=== PATIENT | male | born 1935 | race Two or more races ===

== ENCOUNTER 2024-03-17 08:16 | Emergency (ER) | payer MEDICARE, MEDICAID, SELFPAY ==
[2024-03-17 08:26] VITALS: BP 126/74; PULSE 74; RESP 18; TEMP 36.8; O2SAT 95; BMI 24.0
--- NOTE | 2024-03-17 08:39 | EKG_ITS ---
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) Order Number: [id number] Reading MD: Bora Martinez ([facility]) Measurements Intervals [place] Rate: 63 P: AK: QRS: -61 QRSD: 160 T: 47 QT: 422 QTc: 434 Interpretive Statements ATRIAL FIBRILLATION MARKED LEFT AXIS DEVIATION [QRS AXIS < -30] RIGHT BUNDLE BRANCH BLOCK [120+ ms QRS DURATION, UPRIGHT V1, 40+ ms S IN I/aVL/V4/V5/V6] No previous ECG available for comparison /store/S0/[id number].pdf
--- NOTE | 2024-03-17 08:39 | XR_ITS ---
Examination: PA lateral chest 2 views Technique: Upright PA lateral chest 2 views Exam date and time: March 17, 2024 0925 hrs. Indications: Onset chest pain today Findings: Mild prominence left ventricle No pneumonia or pulmonary edema Mild thoracic degenerative disc disease Impression: No pneumonia or pulmonary edema
--- NOTE | 2024-03-17 08:42 | XR_ITS ---
Examination: CT right humerus, without contrast. 2-D sagittal reconstructions. 2-D coronal reconstructions. 3-D reconstructions. Date and time of exam:March 17, 2024 0914 hrs. Indications: Right arm pain and stiffness and swelling, spider bite 2 days ago CTDI: vol (mGy):20.5 DLP: (mGycm):962 Technique: Multiple 1.25 mm axial sections of the right upper extremity right humerus without intravenous contrast have been obtained. 2-D sagittal and coronal reconstructions have been obtained. 3-D reconstructions have been obtained. Low dose protocols were performed. One or more of the following dose reduction techniques were used; automated exposure control, adjustment of the mA and/or KV according to patient size, use of iterative reconstruction technique. Findings: Moderate osteoarthritis glenohumeral joint No humeral head dislocation or fracture Edema in the soft tissue anterior upper arm which also involves the biceps muscle The biceps muscle shows low density but assessment is very difficult without intravenous contrast No scar cortical bone destruction involving the humerus No elbow effusion is noted No foreign body Edema is more prominent posterior to the elbow and posterior forearm Impression: Negative for osteomyelitis Very prominent edema dorsal to the elbow and dorsal forearm with possible poorly defined fluid abscess collection Recommend MRI right upper extremity without contrast follow-up
--- NOTE | 2024-03-17 08:44 | PD.EDRME ---
Rapid Medical Screening Exam [facility] Arrival date/time: 03/17/24 08:16 88-year-old male with past medical history of heart condition on Eliquis presents to the emergency department complaining of right shoulder pain and right arm swelling and bruising that is been going on for several days. Patient denies any recent trauma fall or injury. Chief Complaint: Skin/Abscess/Foreign Body Time Seen by Provider: 03/17/24 08:35 Vital signs: Vital Signs Temperature 98.2 F 03/17/24 08:26 Pulse Rate 74 03/17/24 08:26 Respiratory Rate 18 03/17/24 08:26 Blood Pressure 126/74 03/17/24 08:26 Pulse Oximetry (%) 95 03/17/24 08:26 Oxygen Delivery Method Room Air 03/17/24 08:26
[2024-03-17 09:21] LABS: Basophils % (Auto) 1 % (0-2.5); Eosinophils # (Auto) 0.2 Thou/mm3 (0.0-0.5); Eosinophils % (Auto) 3 % (0-10); Hematocrit 39.4 % (41.0-53.0); Hemoglobin 13.2 g/dL (13.5-16.0); Immature Granulocytes % (Auto) 0 % (0-0); Immature Granulocytes Auto 0.01 Thou/mm3 (0.00-0.00); Lymphocytes # (Auto) 1.1 Thou/mm3 (1.0-4.8); Lymphocytes % (Auto) 19 % (10-50); Mean Corpuscular HGB Conc 33.5 g/dl (31.0-37.0); Mean Corpuscular Hemoglobin 30.2 pg (25.0-35.0); Mean Corpuscular Volume 90 fL (80-100); Monocytes # (Auto) 0.6 Thou/mm3 (0.0-0.8); Monocytes % (Auto) 10 % (0-12); Neutrophils % (Auto) 68 % (37-80); Nucleated Red Blood Cell % 0 /100 WBC (0); Platelet Count 119 Thou/mm3 (140-440); RDW Standard Deviation 47.1 fL (35.1-43.9); Red Blood Count 4.37 Miln/mm3 (4.50-5.90); White Blood Count 5.9 Thou/mm3 (3.8-10.6)
[2024-03-17 09:32] LABS: B-Type Natriuretic Peptide 108 pg/mL (0-100)
[2024-03-17 09:33] LABS: INR 1.2 (0.9-1.3); Partial Thromboplastin Time 28.1 Seconds (22.0-36.0); Prothrombin Time 12.7 Seconds (9.0-12.2)
[2024-03-17 09:37] LABS: Albumin, Serum 4.3 gm/dL (3.4-4.8); Albumin/Globulin Ratio 1.3 (1.2-2.2); Alkaline Phosphatase 77 U/L (46-116); Anion Gap 5 (7-16); Aspartate Amino Transferase 19 U/L (0-34); BUN/Creatinine Ratio 15 Ratio (12-20); Bilirubin,Total 2.6 mg/dL (0.3-1.2); Blood Urea Nitrogen 18 mg/dL (9-23); Calcium 9.4 mg/dL (8.3-10.6); Calcium (Corrected) 9.4 mg/dL (8.5-10.1); Carbon Dioxide 27.2 mMol/L (20.0-31.0); Chloride 106 mMol/L (98-107); Creatinine (Component) 1.2 mg/dL (0.6-1.3); Estimated Creatinine Clearance 35.6 mL/min (>60); Globulin 3.3 gm/dL (2.3-3.5); Glucose 90 mg/dL (74-106); Magnesium 2.2 mg/dL (1.6-2.6); Osmolality,Calculated 277 (275-295); Sodium 138 mMol/L (136-145); Total Protein 7.6 gm/dL (5.7-8.2); Troponin I < 0.020 ng/mL (0.0-0.045); eGFR 59 See Note
[2024-03-17 09:45] LABS: Alanine Aminotransferase 9 U/L (10-49)
[2024-03-17 10:00] LABS: Collection Type, Urine Clean Catch
[2024-03-17 10:13] VITALS: BP 102/65; PULSE 61; RESP 19; TEMP 36.7; O2SAT 99
[2024-03-17 10:55] LABS: Bilirubin,Urine Negative (Negative); Blood,Urine Negative (Negative); Clarity,Urine Clear (Clear/Hazy); Color,Urine Yellow (Lt Yel-Yel); Culture Indicated,Urine Not Indicated; Glucose, Urine Negative (Negative); Ketones,Urine Negative (Negative); Leukocyte Esterase,Urine Negative (Negative); Nitrite,Urine Negative (Negative); Protein,Urine Negative (Neg - Trace); RBC,Urine 2 /hpf (0-3); Specific Gravity,Urine 1.019 (1.001-1.035); Squamous Epithelial Cell,Urine < 1 /hpf (0-5); Urobilinogen,Urine Negative mg/dL (0.0-1.0); WBC,Urine 1 /hpf (0-5)
--- NOTE | 2024-03-17 11:30 | EDNOTE_ITS ---
ED General RME/HPI General Chief complaint: Skin/Abscess/Foreign Body Stated complaint: POSSIBLE SPIDER BITE/RIGHT ARM BLACK/NUMB Time Seen by Provider: 03/17/24 08:35 Arrival date/time: 03/17/24 08:16 RME / HPI RME / HPI narrative: 88-year-old male patient with past medical history of hypertension, chronic A- fib came in for evaluation regarding right arm bruising. Onset of symptoms. Last 3 days. Patient denies any pain. Patient denies any fever denies any trauma denies any other complaints. Patient is taking Eliquis. Related Data Home Medications ?Medication ?Instructions ?Recorded ?Confirmed tamsulosin 0.4 mg capsule (Flomax) 0.4 mg PO QDAY ##0 02/10/16 10/10/17 Benazepril Hcl * (LOTENSIN *) 10 mg PO QDAY #0 tabs 03/08/16 10/10/17 Ibuprofen * (MOTRIN *) 400 mg PO Q6HR #0 tabs 06/07/16 10/10/17 Allergies Allergy/AdvReac Type Severity Reaction Status Date / Time No Known Drug Allergies Allergy Verified 03/17/24 08:20 Review of Systems Review of Systems Narrative Review of Systems: Review of system reviewed and within normal limits except mentioned in HPI ED Exam Narrative Physical exam: VITAL SIGNS: Reviewed. GENERAL APPEARANCE: Alert and interactive, follows commands, no acute distress, HEAD AND FACE: Non-traumatic. ENT: PERRL, pink conjunctivitis, eyelid no trauma, Mucous membrane moist. NECK: Supple, nontender, no nuchal rigidity. CHEST: No tenderness, no crepitus, no paradoxical movement, no retractions. LUNGS: Clear, well ventilated, symmetric, no rales, no wheezing, no ronchi, no stridor, good breath sounds bilaterally. HEART: Regular rate, regular rhythm, no murmur, no gallops. ABDOMEN: Soft, positive bowel sounds, nondistended, no guarding, nontender, no rebound, no masses, RECTAL: Deferred. GENITAL: Deferred. NEUROLOGICAL: Gross motor function intact sensory function intact, Appropriate for age. MUSCULOSKELETAL: low back nontender, full range of motion. EXTREMITIES: Right upper extremity bruising, no swelling no tenderness no skin breakdown radial and ulnar pulses +2 bilaterally, nontender, full range of motion. SKIN: Color pink, dry, no rash, no lacerations, no abrasions, no contusions. LYMPHATICS: Deferred. Course Quality Measures none Orders Category Date Time Status EKG (ED ONLY) *Do not use* NOW Care 03/17/24 08:[address] humerus RT wo con Stat Exams 03/17/24 08:42 Completed EKG (ED Only) Stat Exams 03/17/24 08:39 Ordered XR chest 2V Stat Exams 03/17/24 08:39 Completed B-Type Natriuretic Peptide Stat Lab 03/17/24 09:07 Completed CBC Stat Lab 03/17/24 09:07 Completed Comprehensive Metabolic Panel Stat Lab 03/17/24 09:07 Completed Magnesium Stat Lab 03/17/24 09:07 Completed Partial Thromboplastin Time Stat Lab 03/17/24 09:07 Completed Prothrombin Time with INR Stat Lab 03/17/24 09:07 Completed Troponin I Stat Lab 03/17/24 09:07 Completed Urinalysis, C/S if Indicated Stat Lab 03/17/24 09:50 Completed Vital Signs Vital signs: Vital Signs Temperature 98.2 F 03/17/24 08:26 Pulse Rate 74 03/17/24 08:26 Respiratory Rate 18 03/17/24 08:26 Blood Pressure 126/74 03/17/24 08:26 Pulse Oximetry (%) 95 03/17/24 08:26 Oxygen Delivery Method Room Air 03/17/24 08:26 [facility] [place] Patient data External records reviewed:: None Clinical information provided by:: patient Social determinants that could affect healthcare access:: none Patient has the following chronic illnesses:: Chronic A-fib hypertension How is presenting disease/condition affected by chronic disease/condition?: e xacerbated by Evaluation data The following diagnostics were reviewed and interpreted by me:: lab results and radiology exam(s) Lab and/or radiology exams considered but not ordered:: None Interpretation Summary: EKG as interpreted by me showed chronic A-fib, ventricular rate of 63 bpm, no ST segment elevation depression noted. Laboratory workup all came back normal. Except for slightly elevated total bili of 2.6. X-ray of the arm is negative for any sign of osteomyelitis as interpreted by me. Results discussed with the patient. And family. Medications Medications considered but not ordered:: None Medication administrations:: None Consultations Consultation(s) initiated? (list below): No Diagnosis Differential Diagnosis ED Complaint MDM: Bruising, cellulitis, chronic A-fib on Eliquis Most likely diagnosis given after review of the tests above:: Right upper extremity bruising Admission Indicated Admission indicated?: not indicated Explain why admission is indicated or not indicated:: None Admission Request Was there a request for admission?: No Disposition Plan Disposition Plan: Discharge Discharge Attestation Discharge Attestation: The patient and all family members were given an opportunity to ask questions and understood the discharge instructions. Discharge instructions specifically effects, indications for sooner follow up or return to the emergency department, and the expected course of current diagnosis. Patient condition: Stable Medical Decision Making MDM Narrative MDM Narrative: 88-year-old male patient with past medical history of hypertension, chronic A- fib came in for evaluation regarding right arm bruising. Onset of symptoms. Last 3 days. Patient denies any pain. Patient denies any fever denies any trauma denies any other complaints. Patient is taking Eliquis. Laboratory workup all came back normal patient's bruising could be secondary to Eliquis. There is no sign of infection. Patient stable for discharge Differential Diagnosis Differential Diagnosis: Bruising, cellulitis, chronic A-fib on Eliquis Lab Data 03/17/24 09:07 03/17/24 09:07 Labs: Lab Results 03/17/24 03/17/24 Range/Units 09:07 09:50 WBC 5.9 (3.8-10.6) Thou/mm3 RBC 4.37 L (4.50-5.90) Miln/mm3 Hgb 13.2 L (13.5-16.0) g/dL Hct 39.4 L (41.0-53.0) % MCV 90 (80-100) fL MCH 30.2 (25.0-35.0) pg MCHC 33.5 (31.0-37.0) g/dl RDW Std Deviation 47.1 H (35.1-43.9) fL Plt Count 119 L (140-440) Thou/mm3 Neut % (Auto) 68 (37-80) % Lymph % (Auto) 19 (10-50) % [place] % (Auto) 10 (0-12) % Eos % (Auto) 3 (0-10) % Baso % (Auto) 1 (0-2.5) % Neut # (Auto) 4.0 (1.8-7.7) Thou/mm3 Lymph # (Auto) 1.1 (1.0-4.8) Thou/mm3 [place] # (Auto) 0.6 (0.0-0.8) Thou/mm3 Eos # (Auto) 0.2 (0.0-0.5) Thou/mm3 Baso # (Auto) 0.0 (0.0-0.2) Thou/mm3 Immature Gran # (Auto) 0.01 H (0.00-0.00) Thou/mm3 Absolute Nucleated RBC 0.00 (0.00-0.00) Thou/mm3 Immature Gran % 0 (0-0) % Nucleated RBC % 0 (0) /100 WBC PT 12.7 H (9.0-12.2) Seconds INR 1.2 (0.9-1.3) APTT 28.1 (22.0-36.0) Seconds Sodium 138 (136-145) mMol/L Potassium 4.0 (3.4-5.1) mMol/L Chloride 106 (98-107) mMol/L Carbon Dioxide 27.2 (20.0-31.0) mMol/L Anion Gap 5 L (7-16) BUN 18 (9-23) mg/dL Creatinine 1.2 (0.6-1.3) mg/dL Estim Creat Clear Calc 35.6 L (>60) mL/min eGFR 59 L (60 - ) See Note BUN/Creatinine Ratio 15 (12-20) Ratio Glucose 90 (74-106) mg/dL Calculated Osmolality 277 (275-295) Calcium 9.4 (8.3-10.6) mg/dL Corrected Calcium 9.4 (8.5-10.1) mg/dL Magnesium 2.2 (1.6-2.6) mg/dL Total Bilirubin 2.6 H (0.3-1.2) mg/dL AST 19 (0-34) U/L ALT 9 L (10-49) U/L Alkaline Phosphatase 77 (46-116) U/L Troponin I < 0.020 (0.0-0.045) ng/mL B-Natriuretic Peptide 108 H (0-100) pg/mL Total Protein 7.6 (5.7-8.2) gm/dL Albumin 4.3 (3.4-4.8) gm/dL Globulin 3.3 (2.3-3.5) gm/dL Albumin/Globulin Ratio 1.3 (1.2-2.2) Ur Collection Type Clean Catch Urine Color Yellow (Lt Yel-Yel) Urine Clarity Clear (Clear/Hazy) Urine pH 6.0 (5.0-7.0) Ur Specific [place] 1.019 (1.001-1.035) Urine Protein Negative (Neg - Trace) Urine Glucose (UA) Negative (Negative) Urine Ketones Negative (Negative) Urine Blood Negative (Negative) Urine Nitrite Negative (Negative) Urine Bilirubin Negative (Negative) Urine Urobilinogen (Auto) Negative (0.0-1.0) mg/dL Ur Leukocyte Esterase Negative (Negative) Urine RBC 2 (0-3) /hpf Urine WBC 1 (0-5) /hpf Ur Squamous Epith Cells < 1 (0-5) /hpf Urine Bacteria None (None) Ur Culture Indicated? Not Indicated Discharge Plan Plan Patient Disposition: HOME (Self Care) Disposition Comment: stable Prescriptions/Referrals Prescriptions/Med Rec: No Action tamsulosin [Flomax] 0.4 MG capsule,extended release 24hr 0.4 mg PO QDAY Qty: 0 Benazepril Hcl * (LOTENSIN *) 10 MG tablet 10 mg PO QDAY Qty: 0 Ibuprofen * (MOTRIN *) 400 MG tablet 400 mg PO Q6HR Qty: 0 Referrals: No Primary/Family,Physician [Primary Care Provider] - In 1 week Problem List Clinical Impression: Superficial bruising of upper limb Patient/Caregiver Discharge Instructions Discharge Activity: activity as tolerated Education Materials: Bruises (Contusions) Additional Instructions: Thank you for the opportunity for serving you today. You are stable for discharged . You are advised to: Follow-up with your PCP in 1 to 2 days Return to ED for worsening of symptoms Increase oral fluids Print Language: Irish Stand Alone Forms: Susana Award Info., Patient Portal Info Letter
[2024-03-17 12:00] VITALS: BP 134/87; PULSE 60; RESP 19; TEMP 36.7; O2SAT 98
[2024-03-17 13:40] VITALS: BP 111/63; PULSE 61; RESP 19; TEMP 36.7; O2SAT 100
== END 2024-03-17 13:49 | disposition home or self-care (01) ==
PROVIDERS: Emergency Provider Emergency Medicine
DX: S40.021A Contusion of right upper arm, initial encounter (principal); X58.XXXA Exposure to other specified factors, initial encounter; R07.9 Chest pain, unspecified; I48.91 Unspecified atrial fibrillation; Z79.01 Long term (current) use of anticoagulants; I45.10 Unspecified right bundle-branch block
CPT/HCPCS: 36415; 71046; 73200; 80053; 81001; 83735; 83880; 84484; 85025; 85610; 85730; 93005; 99284

== ENCOUNTER 2024-03-27 12:41 | Emergency (ER) | payer MEDICARE, MEDICAID, SELFPAY ==
[2024-03-27 12:44] VITALS: BMI 25.0
[2024-03-27 12:55] VITALS: BP 134/76; PULSE 79; RESP 20; TEMP 36.9; O2SAT 100; BMI 24.9
--- NOTE | 2024-03-27 13:09 | XR_ITS ---
Examination: Duplex scan of the upper extremity, unilateral right complete Date and time of exam: March 27, 2024 1340 hours INDICATIONS: Right arm swelling and pain beginning 8 days ago Technique: Duplex scan of the extremity veins using B-mode/grayscale imaging and Doppler spectral analysis and color flow Attention is directed to internal echogenicity, compression and augmentation involving these veins, color flow assessment, spectral analysis Findings: Major deep venous structures in the extremity demonstrate normal course and caliber. There is no evidence of deep vein thrombosis. Normal color flow and spectral analysis Impression: Negative for DVT.. Positive for thrombus in the right superficial right cephalic vein Solid mass upper right arm at the level of the biceps, 5.5 x 3.1 x 4.3 cm, recommend MRI right arm follow-up pre and postcontrast to assess this soft tissue mass
--- NOTE | 2024-03-27 13:09 | XR_ITS ---
Examination: Hand, right 3 views Technique: Hand AP, oblique, lateral 3 views Date and time of exam: March 27, 2024 1440 hours INDICATIONS: Swollen hand beginning one week ago FINDINGS: Moderate osteopenia Soft tissue vascular calcification No fracture Old fracture deformity ungual tuft tip distal phalanx fourth digit Moderate osteoarthritis second metatarsophalangeal joint Also moderate osteoarthritis first carpometacarpal joint IMPRESSION: Osteoarthritis as above No fracture or cortical bone destruction
--- NOTE | 2024-03-27 13:09 | XR_ITS ---
Examination: Forearm, right, 2 views. Technique: Forearm, AP, lateral 2 views Date and time of exam: March 27, 2024 1440 hours INDICATIONS: Forearm swelling beginning 2 weeks ago. FINDINGS: No fracture or dislocation Soft tissue vascular calcification 8mm posterior bony olecranon spur IMPRESSION: No fracture or cortical bone destruction No opaque foreign body
--- NOTE | 2024-03-27 13:09 | XR_ITS ---
Examination: Humerus 2 views right Technique: Humerus, AP lateral 2 views Date and time of exam: March 27, 2024 1420 hours INDICATIONS: Swollen painful right arm 1.5 weeks FINDINGS: Moderate to advanced osteoarthritis glenohumeral joint No humeral head dislocation Shaft of the humerus intact IMPRESSION: No fracture
--- NOTE | 2024-03-27 13:10 | PD.EDRME ---
Rapid Medical Screening Exam [facility] Arrival date/time: 03/27/24 12:41 88-year-old male currently on Eliquis presents emergency department complaints of right upper extremity swelling and bruising Chief Complaint: Extremity Problem,Nontraumatic Time Seen by Provider: 03/27/24 13:05 Vital signs: Vital Signs Temperature 98.5 F 03/27/24 12:55 Pulse Rate 79 03/27/24 12:55 Respiratory Rate 20 03/27/24 12:55 Blood Pressure 134/76 H 03/27/24 12:55 Pulse Oximetry (%) 100 03/27/24 12:55 Oxygen Delivery Method Room Air 03/27/24 12:55
[2024-03-27 13:28] LABS: Basophils % (Auto) 1 % (0-2.5); Eosinophils # (Auto) 0.1 Thou/mm3 (0.0-0.5); Eosinophils % (Auto) 2 % (0-10); Hematocrit 39.6 % (41.0-53.0); Hemoglobin 13.4 g/dL (13.5-16.0); Immature Granulocytes % (Auto) 0 % (0-0); Immature Granulocytes Auto 0.02 Thou/mm3 (0.00-0.00); Lymphocytes # (Auto) 1.4 Thou/mm3 (1.0-4.8); Lymphocytes % (Auto) 22 % (10-50); Mean Corpuscular HGB Conc 33.8 g/dl (31.0-37.0); Mean Corpuscular Hemoglobin 30.5 pg (25.0-35.0); Mean Corpuscular Volume 90 fL (80-100); Monocytes # (Auto) 0.6 Thou/mm3 (0.0-0.8); Monocytes % (Auto) 10 % (0-12); Neutrophils # (Auto) 4.1 Thou/mm3 (1.8-7.7); Neutrophils % (Auto) 65 % (37-80); Nucleated Red Blood Cell % 0 /100 WBC (0); Platelet Count 139 Thou/mm3 (140-440); RDW Standard Deviation 47.3 fL (35.1-43.9); White Blood Count 6.2 Thou/mm3 (3.8-10.6)
[2024-03-27 13:41] LABS: Alanine Aminotransferase 12 U/L (10-49); Albumin, Serum 4.3 gm/dL (3.4-4.8); Albumin/Globulin Ratio 1.2 (1.2-2.2); Alkaline Phosphatase 82 U/L (46-116); Anion Gap 6 (7-16); Aspartate Amino Transferase 16 U/L (0-34); BUN/Creatinine Ratio 16 Ratio (12-20); Bilirubin,Total 3.4 mg/dL (0.3-1.2); Blood Urea Nitrogen 19 mg/dL (9-23); Calcium 9.4 mg/dL (8.3-10.6); Calcium (Corrected) 9.4 mg/dL (8.5-10.1); Chloride 104 mMol/L (98-107); Creatinine (Component) 1.2 mg/dL (0.6-1.3); Estimated Creatinine Clearance 34.1 mL/min (>60); Globulin 3.5 gm/dL (2.3-3.5); Glucose 102 mg/dL (74-106); INR 1.1 (0.9-1.3); Osmolality,Calculated 276 (275-295); Partial Thromboplastin Time 27.6 Seconds (22.0-36.0); Potassium 4.1 mMol/L (3.4-5.1); Sodium 137 mMol/L (136-145); Total Protein 7.8 gm/dL (5.7-8.2); eGFR 59 See Note
[2024-03-27 15:51] VITALS: BP 121/73; PULSE 97; RESP 20; TEMP 36.6; O2SAT 98
--- NOTE | 2024-03-27 16:04 | PD.EDADULT ---
ED General RME/HPI General Chief complaint: Extremity Problem,Nontraumatic Stated complaint: RIGHT ARM SWELLING AND PAIN X2WK Time Seen by Provider: 03/27/24 13:05 Arrival date/time: 03/27/24 12:41 CC: Swollen bruising to the right arm right hand HPI ongoing for the past several days. Patient is on Eliquis for A-fib family members and the patient are very poor historian stating that he has been on this for greater than a year. Denies fall repetitive motion or trauma to the hand and arm. No other complaints including shortness of breath or difficulty breathing. RME / HPI RME / HPI narrative: 03/27/24 12:41 88-year-old male currently on Eliquis presents emergency department complaints of right upper extremity swelling and bruising Related Data Home Medications ?Medication ?Instructions ?Recorded ?Confirmed tamsulosin 0.4 mg capsule (Flomax) 0.4 mg PO QDAY ##0 02/10/16 10/10/17 Benazepril Hcl * (LOTENSIN *) 10 mg PO QDAY #0 tabs 03/08/16 10/10/17 Ibuprofen * (MOTRIN *) 400 mg PO Q6HR #0 tabs 06/07/16 10/10/17 Allergies Allergy/AdvReac Type Severity Reaction Status Date / Time No Known Drug Allergies Allergy Verified 03/27/24 12:46 Review of Systems Review of Systems Narrative Review of Systems: GEN: No fever, no chills, no weight loss EYES: No discharge, no visual changes, no pain HEENT: No ear pain, no congestion, no sore throat PULM: No shortness of breath, no cough, no congestion CV: No chest pain, no dyspnea on exertion, no palpitations GI: No nausea, no vomiting, no diarrhea, no pain, no constipation : No frequency, no urgency, no dysuria MUSC/SKEL: No joint pain, no back pain, + head pain SKIN: No rash PSYCH: No hallucinations, no depression HEME/LYMPH: No easy bleeding or bruising tendencies NEURO: No weakness, no headache Past Medical History Past Medical History CARDIAC: Negative Congestive Heart Failure RESPIRATORY: Negative Chronic Obstructive Pulmonary Disease (COPD) GENITOURINARY: Negative Renal Disease ENDOCRINE: Negative Diabetes Mellitus Type 1 or Diabetes Mellitus Type 2 Social History SMOKING STATUS: Never smoker ED Exam Narrative Physical exam: [General: Thin but not emaciated not in any acute distress Head normocephalic HEENT: Eyes pupils PERRLA EOMs are intact all other subsystems of HEENT are within acceptable limits Neck is supple nontender Chest equal chest rise nontender to palpation Respiratory: Clear to auscultation no wheezes crackles or rubs CV: Rate rhythm is regular no murmurs rubs or clicks Abdomen is distended secondary to body habitus soft nontender no masses positive bowel sounds all 4 quadrants Back: No CVA tenderness no spinous process tenderness from cervical spine thoracic and lumbar spine Skin: Significant ecchymosis from the elbow distally to the dorsum of the hand, fingers are somewhat swollen all ecchymosis and very stages of resolution. Ecchymosis and very stages of resolution in the bicep region of the right arm. Otherwise skin is intact no petechiae rash induration ulceration or crepitus Extremities: Moving all extremity against resistance cap refill less than 2 seconds neurosensory intact Neuro: Awake alert oriented x3 Glascow coma 15 no focal deficits] Course Quality Measures none Orders Category Date Time Status US venous doppler UE RT Stat Exams 03/27/24 13:09 Completed XR forearm RT 2V Stat Exams 03/27/24 13:09 Completed XR hand comp RT min 3V Stat Exams 03/27/24 13:09 Completed XR humerus RT min 2V Stat Exams 03/27/24 13:09 Completed CBC Stat Lab 03/27/24 13:16 Completed Comprehensive Metabolic Panel Stat Lab 03/27/24 13:16 Completed Partial Thromboplastin Time Stat Lab 03/27/24 13:16 Completed Prothrombin Time with INR Stat Lab 03/27/24 13:16 Completed Vital Signs Vital signs: Vital Signs Temperature 98.5 F 03/27/24 12:55 Pulse Rate 79 03/27/24 12:55 Respiratory Rate 20 03/27/24 12:55 Blood Pressure 134/76 H 03/27/24 12:55 Pulse Oximetry (%) 100 03/27/24 12:55 Oxygen Delivery Method Room Air 03/27/24 12:55 [facility] Patient data External records reviewed:: [facility] previous records Clinical information provided by:: patient and family Social determinants that could affect healthcare access:: none Patient has the following chronic illnesses:: A-fib on Eliquis, How is presenting disease/condition affected by chronic disease/condition?: exacerbated by Evaluation data The following diagnostics were reviewed and interpreted by me:: lab results and radiology exam(s) Lab and/or radiology exams considered but not ordered:: Ultrasound of the upper arm shows a right cephalic vein superficial thrombus, and a mass in the bicep region CBC shows no leukocytosis H&H of 13 and 39, no thrombocytopenia Coags and within acceptable limits including INR 1.1 CMP shows no significant electrolyte imbalances renal impairment transaminitis the T. bili is elevated at 3.4 Interpretation Summary: Patient most likely has a bicep hematoma given the pattern of ecchymosis, and the superficial but again cephalic vein thrombus, the patient is already on Eliquis. Medications Medications considered but not ordered:: None Medication administrations:: None Consultations Consultation(s) initiated? (list below): No Diagnosis Differential Diagnosis ED Complaint MDM: DVT thrombus superficial thrombophlebitis Most likely diagnosis given after review of the tests above:: Superficial thrombus, hematoma Admission Indicated Admission indicated?: not indicated Explain why admission is indicated or not indicated:: Stable for outpatient follow-up Admission Request Was there a request for admission?: No Disposition Plan Disposition Plan: Discharge Discharge Attestation Discharge Attestation: The patient and all family members were given an opportunity to ask questions and understood the discharge instructions. Discharge instructions specifically effects, indications for sooner follow up or return to the emergency department, and the expected course of current diagnosis. Patient condition: Stable Medical Decision Making Differential Diagnosis Differential Diagnosis: DVT thrombus superficial thrombophlebitis Lab Data 03/27/24 13:16 03/27/24 13:16 Labs: Lab Results 03/27/24 Range/Units 13:16 WBC 6.2 (3.8-10.6) Thou/mm3 RBC 4.40 L (4.50-5.90) Miln/mm3 Hgb 13.4 L (13.5-16.0) g/dL Hct 39.6 L (41.0-53.0) % MCV 90 (80-100) fL MCH 30.5 (25.0-35.0) pg MCHC 33.8 (31.0-37.0) g/dl RDW Std Deviation 47.3 H (35.1-43.9) fL Plt Count 139 L (140-440) Thou/mm3 Neut % (Auto) 65 (37-80) % Lymph % (Auto) 22 (10-50) % [place] % (Auto) 10 (0-12) % Eos % (Auto) 2 (0-10) % Baso % (Auto) 1 (0-2.5) % Neut # (Auto) 4.1 (1.8-7.7) Thou/mm3 Lymph # (Auto) 1.4 (1.0-4.8) Thou/mm3 [place] # (Auto) 0.6 (0.0-0.8) Thou/mm3 Eos # (Auto) 0.1 (0.0-0.5) Thou/mm3 Baso # (Auto) 0.0 (0.0-0.2) Thou/mm3 Immature Gran # (Auto) 0.02 H (0.00-0.00) Thou/mm3 Absolute Nucleated RBC 0.00 (0.00-0.00) Thou/mm3 Immature Gran % 0 (0-0) % Nucleated RBC % 0 (0) /100 WBC PT 12.0 (9.0-12.2) Seconds INR 1.1 (0.9-1.3) APTT 27.6 (22.0-36.0) Seconds Sodium 137 (136-145) mMol/L Potassium 4.1 (3.4-5.1) mMol/L Chloride 104 (98-107) mMol/L Carbon Dioxide 27.0 (20.0-31.0) mMol/L Anion Gap 6 L (7-16) BUN 19 (9-23) mg/dL Creatinine 1.2 (0.6-1.3) mg/dL Estim Creat Clear Calc 34.1 L (>60) mL/min eGFR 59 L (60 - ) See Note BUN/Creatinine Ratio 16 (12-20) Ratio Glucose 102 (74-106) mg/dL Calculated Osmolality 276 (275-295) Calcium 9.4 (8.3-10.6) mg/dL Corrected Calcium 9.4 (8.5-10.1) mg/dL Total Bilirubin 3.4 H (0.3-1.2) mg/dL AST 16 (0-34) U/L ALT 12 (10-49) U/L Alkaline Phosphatase 82 (46-116) U/L Total Protein 7.8 (5.7-8.2) gm/dL Albumin 4.3 (3.4-4.8) gm/dL Globulin 3.5 (2.3-3.5) gm/dL Albumin/Globulin Ratio 1.2 (1.2-2.2) Discharge Plan Plan Patient Disposition: HOME (Self Care) Patient condition on transfer: Stable Prescriptions/Referrals Prescriptions/Med Rec: No Action tamsulosin [Flomax] 0.4 MG capsule,extended release 24hr 0.4 mg PO QDAY Qty: 0 Benazepril Hcl * (LOTENSIN *) 10 MG tablet 10 mg PO QDAY Qty: 0 Ibuprofen * (MOTRIN *) 400 MG tablet 400 mg PO Q6HR Qty: 0 Referrals: Jacque Malin PA-C [Primary Care Provider] - In 1 week Problem List Clinical Impression: Superficial venous thrombosis of arm, Hematoma of arm Patient/Caregiver Discharge Instructions Education Materials: Venous Thromboembolism, ED Hematoma Additional Instructions: Continue on your Eliquis is if there is a worsening of bleeding or bruising return to the emergency room for reevaluation. Print Language: Frisian Stand Alone Forms: Susana Award Info., Patient Portal Info Letter PA/TOOL GRINDING TECHNICIAN Supervising Physician PA/TOOL GRINDING TECHNICIAN Supervising Physician: Karlos Nazario ENP
== END 2024-03-27 16:27 | disposition home or self-care (01) ==
PROVIDERS: Nurse Practitioner Primary Care; Emergency Provider Emergency Medicine; PCP Physician Assistant
DX: I82.611 Acute embolism and thrombosis of superficial veins of right upper extremity (principal); R22.31 Localized swelling, mass and lump, right upper limb
CPT/HCPCS: 36415; 73060; 73090; 73130; 80053; 85025; 85610; 85730; 93971; 99284

== ENCOUNTER 2024-12-10 12:18 | Emergency (ER) | payer MEDICARE, MEDICAID, SELFPAY ==
[2024-12-10 12:35] VITALS: BP 111/71; PULSE 96; RESP 97; TEMP 37.1; O2SAT 97; BMI 22.7
--- NOTE | 2024-12-10 12:35 | XR_ITS ---
Examination: PA lateral chest 2 views TECHNIQUE: Upright PA lateral chest 2 views Date and time: December 10, 2024, 1255 hours Comparison March 17, 2024 INDICATIONS: Chest pain today. FINDINGS: Prominent right mediastinum with pneumonia in the right upper lobe Normal heart size Left lung clear IMPRESSION: Recommend CT scan chest post contrast follow-up to exclude right mediastinal tumor adenopathy causing obstructive pneumonitis in the right upper lobe
--- NOTE | 2024-12-10 12:35 | EKG_ITS ---
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
--- NOTE | 2024-12-10 12:35 | PD.EDRME ---
Rapid Medical Screening Exam RME Arrival date/time: 12/10/24 12:18 89-year-old male with a history of BPH and hypertension presents to the emergency room with a chief complaint of bilateral lower extremity swelling x 1 week. Patient states he was sent over by his primary care provider. I have greeted and performed a focused initial assessment of this patient. A comprehensive ED assessment and evaluation of the patient, analysis of all test results, and completion of the medical decision making process will be conducted by additional ED providers. Chief Complaint: General Adult/Misc Complain Vital signs reviewed by provider: Yes
[2024-12-10 13:04] LABS: Basophils # (Auto) 0.1 Thou/mm3 (0.0-0.2); Basophils % (Auto) 1 % (0-2.5); Eosinophils # (Auto) 0.1 Thou/mm3 (0.0-0.5); Eosinophils % (Auto) 1 % (0-10); Hematocrit 37.1 % (41.0-53.0); Hemoglobin 12.1 g/dL (13.5-16.0); Immature Granulocytes Auto 0.04 Thou/mm3 (0.00-0.00); Lymphocytes # (Auto) 1.1 Thou/mm3 (1.0-4.8); Lymphocytes % (Auto) 12 % (10-50); Mean Corpuscular HGB Conc 32.6 g/dl (31.0-37.0); Mean Corpuscular Hemoglobin 28.5 pg (25.0-35.0); Mean Corpuscular Volume 88 fL (80-100); Monocytes # (Auto) 0.8 Thou/mm3 (0.0-0.8); Monocytes % (Auto) 9 % (0-12); Neutrophils # (Auto) 6.9 Thou/mm3 (1.8-7.7); Neutrophils % (Auto) 77 % (37-80); Nucleated Red Blood Cell # 0.00 Thou/mm3 (0.00-0.00); Nucleated Red Blood Cell % 0 /100 WBC (0); Platelet Count 194 Thou/mm3 (140-440); RDW Standard Deviation 44.1 fL (35.1-43.9); Red Blood Count 4.24 Miln/mm3 (4.50-5.90); White Blood Count 9.0 Thou/mm3 (3.8-10.6)
[2024-12-10 13:20] LABS: B-Type Natriuretic Peptide 147 pg/mL (0-100)
[2024-12-10 13:21] LABS: Alanine Aminotransferase 23 U/L (10-49); Albumin, Serum 3.4 gm/dL (3.4-4.8); Albumin/Globulin Ratio 1.1 (1.2-2.2); Alkaline Phosphatase 95 U/L (46-116); Anion Gap 8 (7-16); Aspartate Amino Transferase 38 U/L (0-34); BUN/Creatinine Ratio 15 Ratio (12-20); Bilirubin,Total 1.6 mg/dL (0.3-1.2); Blood Urea Nitrogen 18 mg/dL (9-23); Calcium 8.3 mg/dL (8.3-10.6); Calcium (Corrected) 8.8 mg/dL (8.5-10.1); Carbon Dioxide 25.7 mMol/L (20.0-31.0); Chloride 100 mMol/L (98-107); Creatinine (Component) 1.2 mg/dL (0.6-1.3); Estimated Creatinine Clearance 36.3 mL/min (>60); Globulin 3.2 gm/dL (2.3-3.5); Glucose 98 mg/dL (74-106); Magnesium 1.6 mg/dL (1.6-2.6); Osmolality,Calculated 270 (275-295); Potassium 4.4 mMol/L (3.4-5.1); Sodium 134 mMol/L (136-145); Total Protein 6.6 gm/dL (5.7-8.2); Troponin I < 0.020 ng/mL (0.0-0.045); eGFR 59 See Note
[2024-12-10 13:24] LABS: INR 1.3 (0.9-1.3); Partial Thromboplastin Time 31.1 Seconds (22.0-36.0); Prothrombin Time 13.6 Seconds (9.0-12.2)
[2024-12-10 13:27] LABS: Collection Type, Urine Clean Catch; Squamous Epithelial Cell,Urine 0 /hpf (0-5)
[2024-12-10 13:41] LABS: Bacteria,Urine Rare; Bilirubin,Urine Negative (Negative); Blood,Urine Negative (Negative); Color,Urine Yellow (Lt Yel-Yel); Glucose, Urine Negative (Negative); Ketones,Urine Negative (Negative); Leukocyte Esterase,Urine Negative (Negative); Nitrite,Urine Negative (Negative); PH,Urine 6.0 (5.0-7.0); Protein,Urine Trace (Neg - Trace); RBC,Urine 1 /hpf (0-3); Specific Gravity,Urine 1.026 (1.001-1.035); Urobilinogen,Urine 2.0 mg/dL (0.0-1.0); WBC,Urine < 1 /hpf (0-5)
[2024-12-10 13:44] LABS: Clarity,Urine Hazy (Clear/Hazy)
[2024-12-10 14:20] VITALS: BP 100/66; PULSE 95; RESP 18; TEMP 36.9; O2SAT 98
--- NOTE | 2024-12-10 14:29 | PD.EDADULT ---
ED General RME/HPI General Chief complaint: General Adult/Misc Complain Stated complaint: SWOLLEN FEET, SENT BY PCP Time Seen by Provider: 12/10/24 13:39 Arrival date/time: 12/10/24 12:18 RME / HPI RME / HPI narrative: 12/10/24 12:18 89-year-old male with a history of BPH and hypertension presents to the emergency room with a chief complaint of bilateral lower extremity swelling x 1 week. Patient states he was sent over by his primary care provider. I have greeted and performed a focused initial assessment of this patient. A comprehensive ED assessment and evaluation of the patient, analysis of all test results, and completion of the medical decision making process will be conducted by additional ED providers. DR. AN MAIN ED EVALUATION 89 year old male with history of hypertension and atrial fibrillation currently on Eliquis presents to the ED sent by PCP for evaluation of lower extremity swelling beginning 2-3 days ago. Per son, patient is very active and is standing on his feet often. Patient reportedly has attempted keeping his legs elevated with no improvement. Denies any associated pain or redness. No other associated symptoms reported. Denies fever, chills, sweating. Denies chest pain, cough, shortness of breath. Denies nausea, vomiting, diarrhea, constipation. Denies dysuria, urinary frequency and urgency. Related Data Home Medications ?Medication ?Instructions ?Recorded ?Confirmed tamsulosin 0.4 mg capsule (Flomax) 0.4 mg PO QDAY ##0 02/10/16 10/10/17 Benazepril Hcl * (LOTENSIN *) 10 mg PO QDAY #0 tabs 03/08/16 10/10/17 Ibuprofen * (MOTRIN *) 400 mg PO Q6HR #0 tabs 06/07/16 10/10/17 Allergies Allergy/AdvReac Type Severity Reaction Status Date / Time No Known Drug Allergies Allergy Verified 12/10/24 12:21 Review of Systems Review of Systems Systems Reviewed: All systems reviewed, normal except as documented Past Medical History Past Medical History CARDIAC: Negative Congestive Heart Failure RESPIRATORY: Negative Chronic Obstructive Pulmonary Disease (COPD) GENITOURINARY: Negative Renal Disease ENDOCRINE: Negative Diabetes Mellitus Type 1 or Diabetes Mellitus Type 2 Social History SMOKING STATUS: Former smoker ED Exam Narrative Physical exam: GENERAL APPEARANCE: alert and oriented x 4, well-developed, well-nourished, no acute distress HEENT: Normocephalic, atraumatic; pupils equal, round, reactive to light; EOMI; mucous membranes pink, moist; oropharynx clear NECK: Supple LUNGS: CTABL; no wheezes, no rales, no rhonchi HEART: Regular rate, regular rhythm; normal S1, S2; no murmurs ABDOMEN: non distended; normal BS; soft, no tenderness, no guarding, no rebound; no masses, no organomegaly, no hernia BACK: no CVA tenderness EXTREMITIES: atraumatic; pitting edema +2 bilateral feet to the ankles, no erythema, no tenderness, no wounds NEUROLOGIC: awake; alert and oriented x4; cranial nerves II-XII grossly intact; no focal sensory or motor deficits PSYCHIATRIC: appropriate mood and affect SKIN: warm, dry, normal color; no rashes Course Quality Measures none Orders Category Date Time Status EKG (ED ONLY) *Do not use* NOW Care 12/10/24 12:[address] chest wo con Stat Exams 12/10/24 14:35 Completed EKG (ED Only) Stat Exams 12/10/24 12:35 Draft XR chest 2V Stat Exams 12/10/24 12:35 Completed B-Type Natriuretic Peptide Stat Lab 12/10/24 12:44 Completed CBC Stat Lab 12/10/24 12:44 Completed Comprehensive Metabolic Panel Stat Lab 12/10/24 12:44 Completed Magnesium Stat Lab 12/10/24 12:44 Completed Partial Thromboplastin Time Stat Lab 12/10/24 12:44 Completed Prothrombin Time with INR Stat Lab 12/10/24 12:44 Completed Troponin I Stat Lab 12/10/24 12:44 Completed Urinalysis Stat Lab 12/10/24 13:15 Completed Vital Signs Vital signs: Vital Signs Temperature 98.7 F 12/10/24 12:35 Pulse Rate 96 12/10/24 12:35 Respiratory Rate 97 H 12/10/24 12:35 Blood Pressure 111/71 12/10/24 12:35 Pulse Oximetry (%) 97 12/10/24 12:35 Oxygen Delivery Method Room Air 12/10/24 12:35 Pulse ox is 97% on room air which is adequate. Critical Care Time Critical Care Time Critical Care Time: No Discharge Plan Plan Patient Disposition: HOME (Self Care) Prescriptions/Referrals Prescriptions/Med Rec: No Action tamsulosin [Flomax] 0.4 MG capsule,extended release 24hr 0.4 mg PO QDAY Qty: 0 Benazepril Hcl * (LOTENSIN *) 10 MG tablet 10 mg PO QDAY Qty: 0 Ibuprofen * (MOTRIN *) 400 MG tablet 400 mg PO Q6HR Qty: 0 Referrals: Jacque Malin PA-C [Primary Care Provider] - In 1 week Problem List Clinical Impression: Mass of upper lobe of right lung Patient/Caregiver Discharge Instructions Education Materials: Diagnosing and Staging Lung Cancer Print Language: Indonesian Stand Alone Forms: Susana Award Info., Patient Portal Info Letter MDM Narrative MDM hospital course: IMichelle am scribing for and in the presence of Dr. An. Patient remains clinically stable throughout the emergency department visit. We reviewed all the results, analysis, and treatment plans. Patient is amenable to discharge. Strict return precautions were outlined. Patient was discharged in stable condition. Clinical Information Provided by patient Medical Records Reviewed [facility] I reviewed ED visit on 03/27/2024 Meds/Rx Considered, not Ordered None Labs/Rad/Tests considered, not Ordered None Chronic Illness/Social Conditions which may negatively complicate care or outcome(s)-explain: None or not applicable EKG Interpretation EKG #1: Date/time of EK12/10/24 12:36 PM EKG interpretation: Atrial fibrillation, rate 88, right bundle branch block, low voltage in diffuse leads, moderate artifact, mild baseline wander. Lab Interpretation Labs: see narrative above Lab(s) interpretation(s): No acute findings. BNP minimally elevated at 147. T bili elevated at 1.6 but appears to be chronically elevated dating back to 03/17/2024 Imaging Radiology reports / interpretation(s): Ordering Physician: Jay Jay Pinto Date of Service: 12/10/24 Procedure(s): XR chest 2V Accession Number(s): [id number] cc: JayJ ay Pinto; Jas Ferreira MD; Jacque Malin PA-C~ Examination: PA lateral chest 2 views TECHNIQUE: Upright PA lateral chest 2 views Date and time: December 10, 2024, 1255 hours Comparison March 17, 2024 INDICATIONS: Chest pain today. FINDINGS: Prominent right mediastinum with pneumonia in the right upper lobe Normal heart size Left lung clear IMPRESSION: Recommend CT scan chest post contrast follow-up to exclude right mediastinal tumor adenopathy causing obstructive pneumonitis in the right upper lobe Dictated By: Jas Ferreira MD Signed By: <Electronically signed by Jas Ferreira MD in OV> 12/10/24 1325 Ordering Physician: Glenny An MD Date of Service: 12/10/24 Procedure(s): CT chest wo con Accession Number(s): [id number] cc: Jas Ferreira MD; Glenny An MD; Jacque Malin PA-C~ Examination: CT chest, without intravenous contrast. Sagittal and coronal 2-D reconstructions. Exam date and time: December 10, 2024 1501 hours INDICATIONS: Difficulty breathing today, swollen feet, right upper lobe pneumonia Prominent right mediastinum on chest x-ray today CTDI:vol (mGy) 7.9 DLP: (mGycm) 274 Technique: Multiple 3.0 mm axial sections of the chest to been obtained. Bone and lung density settings are obtained. Sagittal and coronal 2-D reconstructions have been obtained. Low dose protocols were performed. One or more of the following dose reduction techniques were used; automated exposure control, adjustment of the mA and/or KV according to patient size, use of iterative reconstruction technique. Findings: Prominent opacity in the right upper lobe with possible necrotic center on axial image 62 14 mm right tracheobronchial lymph node Mild right hilar lymphadenopathy Obstructive type pneumonitis in the right upper lobe Small areas of pneumonia in the right lower lobe At least 10 subcentimeter pulmonary nodules No visualized liver or splenic lesion Normal adrenal glands No hydronephrosis IMPRESSION: Findings suspicious for necrotic pulmonary mass in the right upper lobe,, at least 3 x 4 cm, recommend repeating this study with intravenous contrast Dictated By: Jas Ferreira MD Signed By: <Electronically signed by Jas Ferreira MD in OV> 12/10/24 1526 Medication Administration(s) none Diagnosis Most likely dx, and/or detailed dx discussion: Mass of upper lobe of right lung Dispositon Disposition: Discharge Home
--- NOTE | 2024-12-10 14:35 | XR_ITS ---
Examination: CT chest, without intravenous contrast. Sagittal and coronal 2-D reconstructions. Exam date and time: December 10, 2024 1501 hours INDICATIONS: Difficulty breathing today, swollen feet, right upper lobe pneumonia Prominent right mediastinum on chest x-ray today CTDI:vol (mGy) 7.9 DLP: (mGycm) 274 Technique: Multiple 3.0 mm axial sections of the chest to been obtained. Bone and lung density settings are obtained. Sagittal and coronal 2-D reconstructions have been obtained. Low dose protocols were performed. One or more of the following dose reduction techniques were used; automated exposure control, adjustment of the mA and/or KV according to patient size, use of iterative reconstruction technique. Findings: Prominent opacity in the right upper lobe with possible necrotic center on axial image 62 14 mm right tracheobronchial lymph node Mild right hilar lymphadenopathy Obstructive type pneumonitis in the right upper lobe Small areas of pneumonia in the right lower lobe At least 10 subcentimeter pulmonary nodules No visualized liver or splenic lesion Normal adrenal glands No hydronephrosis IMPRESSION: Findings suspicious for necrotic pulmonary mass in the right upper lobe,, at least 3 x 4 cm, recommend repeating this study with intravenous contrast
== END 2024-12-10 16:57 | disposition home or self-care (01) ==
PROVIDERS: Nurse Practitioner Family; Emergency Provider Emergency Medicine; PCP Physician Assistant
DX: R91.8 Other nonspecific abnormal finding of lung field (principal); I48.91 Unspecified atrial fibrillation; I45.10 Unspecified right bundle-branch block; R07.9 Chest pain, unspecified
CPT/HCPCS: 36415; 71046; 71250; 80053; 81001; 83735; 83880; 84484; 85025; 85610; 85730; 93005; 99283

== ENCOUNTER → 2025-01-03 | Outpatient (CLI) | payer MEDICARE, MEDICAID, SELFPAY ==
--- NOTE | 2025-01-03 13:30 | XR_ITS ---
Examination: CT chest with intravenous contrast 2-D sagittal and coronal reconstructions Exam date and time: December 26, 2024 1343 hours INDICATIONS: Necrotic pulmonary mass right upper lobe 4 x [address] chest December 10, 2024, difficulty breathing this week CTDI:vol (mGy) 8.48 DLP: (mGycm) 311 Technique: Multiple axial sections of the thorax have been obtained. Sections have been obtained, 3 mm slice thickness. Mediastinal and lung density settings have been obtained. Intravenous contrast administered, 60 cc Isovue-370. 2-D sagittal, coronal images obtained. Low dose protocols were performed. One or more of the following dose reduction techniques were used; automated exposure control, adjustment of the mA and/or KV according to patient size, use of iterative reconstruction technique. Findings: Necrotic pulmonary mass right upper lobe is better demonstrated on this contrast study at least 5.8 x 4.4 cm invading the right mediastinum, partially surrounding the superior vena cava and extending into the right hilar region with enlarged pretracheal lymph nodes No pulmonary artery filling defects COPD 10 mm spiculated mass right upper lobe image 70 No pulmonary edema No visualized liver or splenic lesion No gallstones No pancreatic mass Prominent osteopenia Left renal collecting system appears dilated IMPRESSION: Necrotic pulmonary mass most consistent with lung cancer in the right upper lobe invading the right mediastinum with mediastinal lymphadenopathy 10 mm spiculated nodule in the right upper lobe Dilated left renal collecting system, recommend CT scan abdomen pelvis post intravenous contrast follow-up
== END | disposition home or self-care (01) ==
LOC: CCTX 13:21
PROVIDERS: PCP Physician Assistant; Referring Provider Physician Assistant; Visit Provider Physician Assistant
DX: R91.8 Other nonspecific abnormal finding of lung field (principal)
CPT/HCPCS: 71260; A4649; Q9967

== ENCOUNTER → 2025-01-18 | Outpatient (CLI) | payer MEDICARE, MEDICAID, SELFPAY ==
--- NOTE | 2025-01-18 10:32 | XR_ITS ---
Examination: CT abdomen with intravenous contrast CT pelvis with intravenous contrast 2-D coronal reconstructions 2-D sagittal reconstructions Date and time of exam:January 18, 2025, 1046 hours, comparison May 03, 2023 INDICATIONS: CT chest January 03, 2025 5.8 cm necrotic pulmonary mass right upper lobe, 10 mm spiculated nodule in the right upper lobe, dilated left renal collecting system. CTDI: vol (mGy) 5.23 DLP: (mGycm) 303 Technique: Multiple axial sections of the abdomen and pelvis have been obtained. 64 slice high-resolution scanner used. 3 mm axial sections have been obtained, post intravenous injection 60 cc Isovue-370 2-D sagittal, coronal reconstructions obtained. Low dose protocols were performed. One or more of the following dose reduction techniques were used; automated exposure control, adjustment of the mA and/or KV according to patient size, use of iterative reconstruction technique. Findings: 3 mm, 2 mm right middle lobe pulmonary nodules 3 mm pulmonary nodule right lower lobe No visualized liver or splenic lesion No gallstones Common bile duct 9 mm No pancreatic mass Probable left parapelvic cyst No renal or ureteral calculi, no hydronephrosis Aorta in the abdomen is not enlarged No bowel obstruction No abdominal or pelvic lymphadenopathy There is mild free fluid in the pelvis Urinary bladder is intact Transverse prostate dimension 4.5 cm Prominent osteopenia IMPRESSION: Noncalcified pulmonary nodules as above Common bile duct 9 mm no stones Probable left parapelvic cyst No abdominal or pelvic lymphadenopathy
== END | disposition home or self-care (01) ==
LOC: CCTX 09:58
PROVIDERS: PCP Physician Assistant; Referring Provider Physician Assistant; Visit Provider Physician Assistant
DX: R91.8 Other nonspecific abnormal finding of lung field (principal)
CPT/HCPCS: 74177; A4649; Q9967